=== PATIENT | male | born 1985 | race Caucasian/White ===

== ENCOUNTER 2020-08-11 20:28 | Inpatient (IN) | payer OTHER ==
[~2020-08-11] VITALS: Ht 172.7 cm; Wt 94.0 kg
[2020-08-11] MEDS ORDERED: ACETAMINOPHEN 325 MG TABLET PO ONE (22:15)
[2020-08-11] MEDS ORDERED: IBUPROFEN 400 MG TABLET PO ONE (22:15)
[2020-08-11 23:49] LABS: APPEARANCE,URINE CLEAR (CLEAR); BILIRUBIN,URINE NEGATIVE (NEGATIVE); GLUCOSE, URINE (UA) NEGATIVE (NEGATIVE); KETONES,URINE NEGATIVE (NEGATIVE); LEUKOCYTE ESTERASE ,URINE NEGATIVE (NEGATIVE); NITRATE,URINE NEGATIVE (NEGATIVE); OCCULT BLOOD,URINE NEGATIVE (NEGATIVE); PH,URINE 6.5 (5.0-8.0); PROTEIN,URINE NEGATIVE (NEGATIVE)
[2020-08-12 00:11] LABS: BACTERIA,URINE Few /HPF (None Seen); RBC,URINE 0-2 /HPF (0-2); SQUAMOUS EPITHELIAL CELL,UR Rare /LPF (None Seen); WBC,URINE 0-2 /HPF (0-5)
[2020-08-12 01:30] LABS: COVID AG,FIA SOURCE NASOPHARYNGEAL
[2020-08-12 01:36] LABS: BASOPHILS % (AUTO) 0.8 % (0.0-2.0); EOSINOPHILS % (AUTO) 1.6 % (1.0-6.0); HEMATOCRIT 41.5 % (41-53); HEMOGLOBIN 14.3 g/dL (13.5-17.5); LYMPHOCYTES # (AUTO) 2.5 K/uL (1.0-4.8); LYMPHOCYTES % (AUTO) 32.5 % (22.0-44.0); MEAN CORPUSCULAR HEMOGLOBIN 31.4 pg (26.0-34.0); MEAN CORPUSCULAR HGB CONC 34.5 G/dL (31.0-37.0); MEAN CORPUSCULAR VOLUME 91 fL (80-100); MONOCYTES # (AUTO) 0.6 K/uL (0.1-1.0); MONOCYTES % (AUTO) 8.4 % (2.0-9.0); NEUTROPHILS # (AUTO) 4.3 K/uL (1.8-7.7); NEUTROPHILS % (AUTO) 56.7 % (40.0-70.0); PLATELET COUNT (AUTO) 257 K/uL (150-450); RED BLOOD CELL COUNT(AUTO) 4.56 MIL/uL (4.50-5.90); RED CELL DISTRIBUTION WIDTH 12.5 % (11.5-14.5)
[2020-08-12 01:42] LABS: ANION GAP 9 mmol/L (8-16); CALCIUM, TOTAL 8.6 mg/dL (8.8-10.5); CARBON DIOXIDE 28 mmol/L (22-29); CHLORIDE 103 mmol/L (98-107); CREATININE 0.93 mg/dL (0.60-1.30); GLOMERULAR FILTR. RATE CALC > 60 mL/min (>60); GLUCOSE,RANDOM 92 mg/dL (70-110); POTASSIUM 4.2 mmol/L (3.5-5.1); SODIUM SERUM 140 mmol/L (136-145); UREA NITROGEN, BLOOD 14 mg/dL (7-18)
[2020-08-12 01:50] LABS: ALANINE AMINOTRANSFERASE 47 U/L (12-78); ALBUMIN 4.1 g/dL (3.4-5.0); ALKALINE PHOSPHATASE 60 U/L (46-116); ASPARTATE AMINOTRANSFERASE 24 U/L (15-37); BILIRUBIN,TOTAL 0.4 mg/dL (0.1-1.0); TOTAL PROTEIN, SERUM 7.6 g/dL (6.4-8.2)
[2020-08-12] MEDS ORDERED: SODIUM CHLORIDE 0.9% 100 ML ONE (01:59)
[2020-08-12] MEDS ORDERED: IOVERSOL 350 MG/ML 100 ML VIAL ONE (01:59)
[2020-08-12] MEDS ORDERED: ONDANSETRON HCL 4 MG/2 ML VIAL IVP PRN ×2 (02:15→06:45)
[2020-08-12] MEDS ORDERED: ACETAMINOPHEN 325 MG TABLET PO PRN (02:15)
[2020-08-12] MEDS ORDERED: 0.9% SODIUM CHLORIDE 10 ML SYRINGE IVP PRN (02:15)
[2020-08-12 03:15] VITALS: BP 132/82
[2020-08-12] MEDS ORDERED: no home meds CLINICAL (06:41)
[2020-08-12 07:33] VITALS: BP 124/70
[2020-08-12] MEDS: ACETAMINOPHEN 325 MG TABLET PO PRN ×3 (08:23→19:38)
[2020-08-12] MEDS: HEPARIN SODIUM,PORCINE 5,000 UNITS/ML VIAL SQ SCH ×2 (08:24→16:00)
[2020-08-12 10:23] LABS: HCG,QUANTITATIVE < 1 mIU/mL (0-6); LACTATE DEHYDROGENASE 196 U/L (85-227)
[2020-08-12] MEDS: MORPHINE SULFATE 2 MG/ML SYRINGE IVP PRN ×3 (12:32→21:08)
[2020-08-12 19:32] VITALS: BP 127/66
[2020-08-13] MEDS: DEXTROSE 5%-LACTATED RINGERS 1,000 ML IV SCH ×2 (00:13→08:23)
[2020-08-13] MEDS: MORPHINE SULFATE 2 MG/ML SYRINGE IVP PRN ×2 (00:59→08:22)
[2020-08-13 04:41] VITALS: BP 100/58
[2020-08-13 08:09] VITALS: BP 131/80
[2020-08-13] MEDS: HEPARIN SODIUM,PORCINE 5,000 UNITS/ML VIAL SQ SCH ×2 (08:22)
[2020-08-13] MEDS ORDERED: RINGERS SOLUTION,LACTATED 1,000 ML IV ONE ×2 (11:26→15:30)
[2020-08-13] MEDS ORDERED: BUPIVACAINE HCL/PF 0.5% 30 ML VIAL ONE (15:22)
[2020-08-13] MEDS ORDERED: BUPIVACAINE HCL/PF 0.25% 30 ML VIAL ONE (15:22)
[2020-08-13] MEDS ORDERED: BACITRACIN 50,000 UNITS/VIAL ONE (16:11)
[2020-08-13] MEDS ORDERED: LIDOCAINE/PF 2% 5 ML VIAL ONE ×2 (16:43→17:10)
[2020-08-13] MEDS ORDERED: LIDOCAINE 2%/EPI 1:200,000/PF 20 ML VIAL ONE (16:44)
[2020-08-13] MEDS ORDERED: LIDOCAINE/PF 1% 30 ML VIAL ONE (16:45)
[2020-08-13] MEDS ORDERED: HYDROmorphone 2 MG/ML VIAL IVP PRN (16:45)
[2020-08-13] MEDS ORDERED: MEPERIDINE-PF 25 MG/ML VIAL IVP PRN (16:45)
[2020-08-13] MEDS ORDERED: FentaNYL CITRATE PF 100 MCG/2 ML VIAL IVP PRN (16:45)
[2020-08-13 18:45] VITALS: BP 140/87
[2020-08-13] MEDS: SODIUM CHLORIDE 0.9% 1,000 ML IV SCH (18:59)
[2020-08-13 19:42] VITALS: BP 106/60
[2020-08-13] MEDS ORDERED: OXYGEN THERAPY IH SCH (20:00)
[2020-08-13] MEDS: OxyCODONE HCL/ACETAMINOPHEN 5-325 MG TABLET PO PRN (20:57)
[2020-08-14] MEDS: OxyCODONE HCL/ACETAMINOPHEN 5-325 MG TABLET PO PRN ×5 (01:29→17:04)
[2020-08-14 04:50] VITALS: BP 104/51
[2020-08-14] MEDS ORDERED: PROPOFOL 1% 20 ML VIAL IVP ONE (05:39)
[2020-08-14] MEDS ORDERED: HYDROmorphone 2 MG/ML VIAL IVP ONE (05:39)
[2020-08-14] MEDS ORDERED: LIDOCAINE/PF 2% 5 ML VIAL IM ONE (05:39)
[2020-08-14] MEDS ORDERED: FentaNYL CITRATE PF 100 MCG/2 ML VIAL IVP ONE (05:39)
[2020-08-14] MEDS ORDERED: MIDAZOLAM HCL 2 MG/2 ML VIAL IVP ONE (05:39)
[2020-08-14] MEDS ORDERED: ONDANSETRON HCL 4 MG/2 ML VIAL IVP ONE (05:39)
[2020-08-14] MEDS ORDERED: KETOROLAC TROMETHAMINE 60 MG/2 ML VIAL IM ONE (05:39)
[2020-08-14] MEDS ORDERED: SUCCINYLCHOLINE CHLORIDE 20 MG/ML 10 ML VIAL IVP ONE (05:39)
[2020-08-14] MEDS: SODIUM CHLORIDE 0.9% 1,000 ML IV SCH ×3 (05:43→23:35)
[2020-08-14 08:47] VITALS: BP 114/80
[2020-08-14 19:38] VITALS: BP 118/57
[2020-08-14] MEDS: ACETAMINOPHEN 325 MG TABLET PO PRN (23:35)
[2020-08-15 05:06] VITALS: BP 118/59
[2020-08-15 08:15] VITALS: BP 128/81
[2020-08-15] MEDS: OxyCODONE HCL/ACETAMINOPHEN 5-325 MG TABLET PO PRN ×2 (08:15→20:25)
[2020-08-15 14:45] LABS: BASOPHILS % (AUTO) 0.6 % (0.0-2.0); EOSINOPHILS % (AUTO) 2.9 % (1.0-6.0); HEMATOCRIT 39.8 % (41-53); HEMOGLOBIN 13.7 g/dL (13.5-17.5); LYMPHOCYTES # (AUTO) 1.6 K/uL (1.0-4.8); LYMPHOCYTES % (AUTO) 22.8 % (22.0-44.0); MEAN CORPUSCULAR HEMOGLOBIN 31.4 pg (26.0-34.0); MEAN CORPUSCULAR HGB CONC 34.4 G/dL (31.0-37.0); MEAN CORPUSCULAR VOLUME 92 fL (80-100); MONOCYTES % (AUTO) 13.5 % (2.0-9.0); NEUTROPHILS # (AUTO) 4.3 K/uL (1.8-7.7); NEUTROPHILS % (AUTO) 60.2 % (40.0-70.0); PLATELET COUNT (AUTO) 242 K/uL (150-450); RED BLOOD CELL COUNT(AUTO) 4.35 MIL/uL (4.50-5.90); RED CELL DISTRIBUTION WIDTH 12.7 % (11.5-14.5)
[2020-08-15 14:54] LABS: ANION GAP 10 mmol/L (8-16); CALCIUM, TOTAL 8.7 mg/dL (8.8-10.5); CARBON DIOXIDE 27 mmol/L (22-29); CHLORIDE 100 mmol/L (98-107); CREATININE 0.85 mg/dL (0.60-1.30); GLOMERULAR FILTR. RATE CALC > 60 mL/min (>60); GLUCOSE,RANDOM 119 mg/dL (70-110); POTASSIUM 3.7 mmol/L (3.5-5.1); SODIUM SERUM 137 mmol/L (136-145); UREA NITROGEN, BLOOD 9 mg/dL (7-18)
[2020-08-15 15:01] LABS: ALANINE AMINOTRANSFERASE 39 U/L (12-78); ALBUMIN 3.8 g/dL (3.4-5.0); ALKALINE PHOSPHATASE 63 U/L (46-116); ASPARTATE AMINOTRANSFERASE 27 U/L (15-37); BILIRUBIN,TOTAL 0.7 mg/dL (0.1-1.0); TOTAL PROTEIN, SERUM 7.8 g/dL (6.4-8.2)
[2020-08-15] MEDS: ACETAMINOPHEN 325 MG TABLET PO PRN ×2 (17:58→22:55)
[2020-08-15 19:31] VITALS: BP 122/79
[2020-08-16 04:45] VITALS: BP 121/68
[2020-08-16 08:30] VITALS: BP 135/74
[2020-08-16] MEDS: OxyCODONE HCL/ACETAMINOPHEN 5-325 MG TABLET PO PRN ×3 (08:46→23:59)
[2020-08-16 20:14] VITALS: BP 111/56
[2020-08-17 05:11] VITALS: BP 117/57
[2020-08-17 08:13] VITALS: BP 128/70
[2020-08-17] MEDS: OxyCODONE HCL/ACETAMINOPHEN 5-325 MG TABLET PO PRN ×2 (08:20→20:40)
[2020-08-17] MEDS ORDERED: MAGNESIUM HYDROXIDE SUSPENSION 30 ML UDCUP PO ONE (13:15)
[2020-08-17] MEDS ORDERED: MAGNESIUM CITRATE 300 ML ORAL SOLUTION PO ONE (14:00)
[2020-08-17 20:36] VITALS: BP 113/59
[2020-08-17] MEDS: DOCUSATE SODIUM 100 MG CAPSULE PO SCH (20:40)
[2020-08-18 05:17] VITALS: BP 132/77
[2020-08-18 07:20] VITALS: BP 90/58
[2020-08-18] MEDS: DOCUSATE SODIUM 100 MG CAPSULE PO SCH ×2 (09:00→20:11)
[2020-08-18] MEDS: ACETAMINOPHEN 325 MG TABLET PO PRN ×2 (10:21→20:11)
[2020-08-18] MEDS: OxyCODONE HCL/ACETAMINOPHEN 5-325 MG TABLET PO PRN ×2 (17:49→22:45)
[2020-08-18 19:15] VITALS: BP 92/50
[2020-08-19 04:55] VITALS: BP 105/55
[2020-08-19 07:26] VITALS: BP 100/45
[2020-08-19] MEDS: DOCUSATE SODIUM 100 MG CAPSULE PO SCH (08:30)
[2020-08-19] MEDS: ACETAMINOPHEN 325 MG TABLET PO PRN (12:27)
[2020-08-19] MEDS ORDERED: ACET-2080 PO (13:36)
[2020-08-19] MEDS ORDERED: DOCU100C33 PO (13:37)
[2020-08-19 18:06] LABS: OVA AND PARASITES EXAM Final report
== END 2020-08-19 14:20 | DRG 712 ==
LOC: EMS 20:28 → 6S 08-12 00:30
PROVIDERS: ADMIT Internal Medicine; ATTEND Internal Medicine
PROC: 0VB90ZZ Excision of Right Testis, Open Approach (ICD-10-PCS; principal; 2020-08-13 16:30)
DX: N50.89 Other specified disorders of the male genital organs (principal); I86.1 Scrotal varices; Z20.822 Contact with and (suspected) exposure to COVID-19; E66.9 Obesity, unspecified; K59.00 Constipation, unspecified; Z82.5 Family history of asthma and other chronic lower respiratory diseases; Z87.891 Personal history of nicotine dependence; Z68.31 Body mass index [BMI] 31.0-31.9, adult
CPT/HCPCS: 71260; 72193; 74160; 76870; 82105; 83615; 87177; 87426; 88309; 88321; 88341; 88342; 99285; J0330; J0690; J1170; J1644; J1885; J2250; J2270; J2405; J2704; J3010; J3490; J7030; J7050; J7120; 36415-L1; 36415-TC